=== PATIENT | female | born 1995 | race Caucasian/White ===

== ENCOUNTER → 2017-04-17 | Outpatient (CLI) | payer OTHER ==
[2017-04-17 11:03] LABS: ABSOLUTE EOSINOPHILS # (AUTO) 0.2 10^3/uL (0.0-0.6); ABSOLUTE LYMPHOCYTES (AUTO) 1.9 10^3/uL (0.5-4.7); ABSOLUTE MONOCYTES (AUTO) 0.5 10^3/uL (0.1-1.4); ABSOLUTE NEUT (AUTO) 6.2 10^3/uL (1.7-8.2); BASOPHILS % (AUTO) 0.4 % (0-2); HEMATOCRIT 39.8 % (36.0-47.0); HEMOGLOBIN 13.9 g/dL (12.0-15.5); LYMPHOCYTES % (AUTO) 21.6 % (13-45); MEAN CORPUSCULAR HEMOGLOBIN 30.2 pg (27.0-33.4); MEAN CORPUSCULAR HGB CONC 34.9 g/dL (32.0-36.0); MEAN CORPUSCULAR VOLUME 86 fl (80-97); MONOCYTES % (AUTO) 5.8 % (3-13); PLATELET COUNT 213 10^3/uL (150-450); RED BLOOD COUNT 4.61 10^6/uL (3.72-5.28); SEGMENTED NEUTROPHILS % (AUTO) 70.2 % (42-78); TOTAL CELLS COUNTED % (AUTO) 100 %; WHITE BLOOD COUNT 8.8 10^3/uL (4.0-10.5)
[2017-04-17 11:30] LABS: ALANINE AMINOTRANSFERASE 22 U/L (5-35); ALBUMIN 5.2 g/dL (3.7-5.6); ALKALINE PHOSPHATASE 82 U/L (50-135); ANION GAP 14 (5-19); ASPARTATE AMINO TRANSFERASE 21 U/L (5-30); BILIRUBIN,DIRECT 0.1 mg/dL (0.0-0.4); BILIRUBIN,TOTAL 0.5 mg/dL (0.2-1.3); BLOOD UREA NITROGEN 6 mg/dL (7-20); CALCIUM 10.7 mg/dL (8.4-10.2); CARBON DIOXIDE 27 mmol/L (22-30); CHLORIDE 104 mmol/L (98-107); GLUCOSE 103 mg/dL (75-110); POTASSIUM 4.2 mmol/L (3.6-5.0); SODIUM 144.8 mmol/L (137-145); TOTAL PROTEIN 7.4 g/dL (6.3-8.2)
--- NOTE | 2017-04-17 11:57 | RADIOLOGY REPORT (SQ) ---
EXAM DESCRIPTION: CHEST PA/LATERAL COMPLETED DATE/TIME: 04/17/2017 10:30 am REASON FOR STUDY: PNEUMONIA, UNSPECIFIED ORGANISM COMPARISON: None. EXAM PARAMETERS: NUMBER OF VIEWS: two views TECHNIQUE: Digital Frontal and Lateral radiographic views of the chest acquired. RADIATION DOSE: NA LIMITATIONS: none FINDINGS: LUNGS AND PLEURA: No opacities, masses or pneumothorax. No pleural effusion. MEDIASTINUM AND HILAR STRUCTURES: No masses or contour abnormalities. HEART AND VASCULAR STRUCTURES: Heart normal size. No evidence for failure. BONES: No acute findings. HARDWARE: None in the chest. OTHER: No other significant finding. IMPRESSION: NO SIGNIFICANT RADIOGRAPHIC FINDING IN THE CHEST. TECHNICAL DOCUMENTATION: JOB ID: [id number] [employer]- All Rights Reserved
== END ==
LOC: OD 10:03
PROVIDERS: ATTEND Obstetrics & Gynecology
DX: J18.9 Pneumonia, unspecified organism (principal)
CPT/HCPCS: 36415; 71046; 80053; 85025; 85379

== ENCOUNTER 2018-12-07 21:30 | Emergency (ER) | payer OTHER ==
[2018-12-07] MEDS ORDERED: METHOCARBAMOL 500 MG TABLET PO ONE (23:47)
[2018-12-07] MEDS ORDERED: IBUPROFEN 800 MG TABLET PO ONE (23:47)
--- NOTE | 2018-12-07 23:50 | ER Document Report ---
HPI - HPI Time Seen by Provider: 12/07/18 23:01 Pain Level: 4 Context: Patient is a 23-year-old female who presents to the emergency department with a chief complaint of left arm and left upper back pain. 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 Patient reports later in the afternoon she developed left upper back pain. Patient reports she does have numbness and tingling when she attempts to raise her left arm above her head. Patient reports this is the only time where she develops the numbness and tingling, and that this does resolve when she rests the arm. Patient states she has not taken anything for her discomfort. Patient denies injury or fall. Patient has full range of motion of the left shoulder joint. - REPRODUCTIVE LMP: 12/04/18 Reproductive: DENIES: : - MUSCULOSKELETAL Musculoskeletal: REPORTS: Extremity pain Past Medical History - General Information source: Patient - Social History Smoking Status: Never Smoker Frequency of alcohol use: None Drug Abuse: None Lives with: Family Family History: None Patient has suicidal ideation: No Patient has homicidal ideation: No - Past Medical History Cardiac Medical History: Reports: None Pulmonary Medical History: Reports: None EENT Medical History: Reports: None Neurological Medical History: Reports: None Endocrine Medical History: Reports: None Renal/ Medical History: Reports: None Malignancy Medical History: Reports: None GI Medical History: Reports: None Musculoskeletal Medical History: Reports None Skin Medical History: Reports None Psychiatric Medical History: Reports: None Traumatic Medical History: Reports: None Infectious Medical History: Reports: None Surgical Hx: Negative Vertical Provider Document - CONSTITUTIONAL Agree With Documented VS: Yes Exam Limitations: No Limitations General Appearance: No Apparent Distress - INFECTION CONTROL TRAVEL OUTSIDE OF THE [place] IN LAST 30 DAYS: No - HEENT HEENT: Atraumatic, Normocephalic, PERRLA - NECK Neck: Normal Inspection, Supple - RESPIRATORY Respiratory: Breath Sounds Normal, No Respiratory Distress - CARDIOVASCULAR Cardiovascular: Regular Rate, Regular Rhythm - GI/ABDOMEN Gastrointestinal: Abdomen Soft, Abdomen Non-Tender - MUSCULOSKELETAL/EXTREMETIES Notes: Patient is able to fully lift her left arm up above her head without any distress. Patient can put her arm behind her back and across her chest without any distress. Patient does have tenderness to the left trapezius muscle. Patient has a strong left brachial and radial pulse with palpation. This is +2. There is no obvious swelling, erythema, ecchymosis. - NEURO Level of Consciousness: Awake, Alert, Appropriate - DERM Integumentary: Warm, Dry, No Rash Course - Re-evaluation Re-evalutation: 12/08/18 00:54 Patient symptoms are consistent with a muscular strain. I did inform the patient to use cool compresses and in a few days switch to warm. 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 I will give the patient a work note, muscle relaxers and anti-inflammatories. Patient to return if symptoms worsen or change. - Vital Signs Vital signs: Temp Pulse Resp BP Pulse Ox 98.2 F 69 18 121/69 100 12/07/18 21:45 12/07/18 21:45 12/07/18 21:45 12/07/18 21:45 12/07/18 21:45 Discharge - Discharge Clinical Impression: Injury of musculoskeletal system, Muscle strain Condition: Stable Disposition: HOME, SELF-CARE Additional Instructions: Today you are seen in the emergency department for left upper back pain. Your symptoms are consistent with a possible muscle strain. I will give you anti- inflammatories as well as a muscle relaxer. Use cool or warm compresses to the area. Please rest. Do not combine the medication with alcohol. Do not drive or operate heavy machinery while on the medication of Robaxin. Muscle Strain You have strained a muscle -- torn the fibers within the muscle. This often occurs with strenuous exertion, or during an injury that suddenly stretches the muscle. The seriousness of a strain varies. Some strains heal within days, others cause problems for months. X-rays cannot show a muscle strain. X-rays are taken only if symptoms sugg est that a fracture could be present. The usual treatment of a muscle strain is rest and ice packs. Sometimes, a sling, splint, or crutches may be necessary to rest the muscle. The muscle can be used again once pain subsides. Severe strains require a special exercise and stretching program to prevent permanent stiffness and disability. Your doctor will advise you if this will be necessary. Call the doctor immediately if pain or swelling becomes severe, or if numbness or discoloration develop. Muscle Relaxers Muscle relaxing medications are usually prescribed for acute muscle spasm or injury to the neck and back. They are often combined with antiinflammatory pain medication for increased relief. You may stop the muscle relaxer when the pain and stiffness have improved. Start the medication again if spasms recur. Muscle relaxers may cause drowsiness, especially with the first dose. Do not operate machinery or drive while under the effects of the medication. Most muscle relaxers last up to 24 hours. Do not combine the medication with alcohol. Prescriptions: Ibuprofen [Motrin 800 mg Tablet] 800 mg PO Q8H PRN #30 tab PRN Reason: Methocarbamol [Robaxin 500 mg Tablet] 1,000 mg PO TID #21 tablet Forms: Special Work Note Referrals: FLEX FABIAN MD [Primary Care Provider] - Follow up as needed
[2018-12-08 00:11] VITALS: BP 107/60
== END 2018-12-08 00:09 | disposition home or self-care (01) ==
LOC: ER 21:30
DX: T14.8XXA Other injury of unspecified body region, initial encounter (principal); M79.602 Pain in left arm; M54.89 Other dorsalgia; R20.0 Anesthesia of skin; R20.2 Paresthesia of skin; X50.9XXA Other and unspecified overexertion or strenuous movements or postures, initial encounter; Y93.F2 Activity, caregiving, lifting

== ENCOUNTER → 2020-03-05 | Outpatient (CLI) | payer OTHER ==
[~2020-03-05] MED LIST: COVID-19 VACCINE (PFIZER)/PF 30 MCG/0.3 ML VIAL IM ONE; EPINEPHRINE INJ/PF 1 MG/1 ML AMPULE IM PRN
== END ==
LOC: EMPHEALTH 06:56
PROVIDERS: ATTEND Internal Medicine
DX: Z23 Encounter for immunization (principal)
CPT/HCPCS: 91300

== ENCOUNTER → 2020-03-26 | Outpatient (CLI) | payer OTHER ==
[2020-03-26 07:47] VITALS: BP 111/69
== END ==
LOC: EMPHEALTH 06:59
PROVIDERS: ATTEND Internal Medicine
DX: Z23 Encounter for immunization (principal)
CPT/HCPCS: 91300